=== PATIENT | male | born 1985 | race Caucasian/White ===

== ENCOUNTER 2020-05-21 12:22 | Emergency (ER) | payer OTHER ==
[~2020-05-21] VITALS: Ht 180.3 cm; Wt 83.9 kg
[2020-05-21] MEDS ORDERED: Norco 5-325 Ta1 EACH PO (13:37)
== END 2020-05-21 14:10 | disposition home or self-care (01) ==
LOC: ER 12:22
DX: K02.9 Dental caries, unspecified (principal); K08.89 Other specified disorders of teeth and supporting structures
CPT/HCPCS: 64400; 99282-25